=== PATIENT | female | born 1995 | race African-American/Black ===

== ENCOUNTER → 2018-07-11 | Outpatient (CLI) | payer BC | END | disposition home or self-care (01) | LOC: MRI 16:56 | PROVIDERS: ATTEND Internal Medicine Geriatric Medicine | DX: M25.562 Pain in left knee (principal) | CPT/HCPCS: 73721 ==

== ENCOUNTER 2019-07-13 15:25 | Emergency (ER) | payer BC, OTHER ==
[~2019-07-13] VITALS: Ht 160 cm; Wt 114.0 kg
[2019-07-13] MEDS ORDERED: FAMOTIDINE 20MG TABLET PO ONE (18:30)
[2019-07-13] MEDS ORDERED: DIAZEPAM 5 MG TABLET PO ONE (18:30)
[2019-07-13] MEDS ORDERED: IBUPROFEN 600MG TABLET PO ONE (18:30)
[2019-07-13 19:26] VITALS: BP 138/78
== END 2019-07-13 19:27 | disposition home or self-care (01) ==
LOC: ER 15:25
DX: M54.6 Pain in thoracic spine (principal); M54.5 Low back pain; X50.0XXA Overexertion from strenuous movement or load, initial encounter; Y93.89 Activity, other specified; Y92.511 Restaurant or cafe as the place of occurrence of the external cause; Y99.8 Other external cause status
CPT/HCPCS: 99284

== ENCOUNTER 2019-12-10 06:42 | Emergency (ER) | payer SELFPAY ==
[~2019-12-10] VITALS: Ht 160 cm; Wt 109.5 kg
[2019-12-10] MEDS ORDERED: KETOROLAC 30MG/ML VIAL IV STA (07:21)
[2019-12-10] MEDS ORDERED: SODIUM CHLORIDE 0.9% 1,000 ML IV ONE (07:21)
[2019-12-10 07:40] LABS: BASOPHILS % 0.3 % (0.0-2.0); EOSINOPHILS % 3.7 % (0.0-5.0); HEMATOCRIT. 37.4 % (36.0-48.0); HEMOGLOBIN. 12.5 g/dL (12.0-16.0); LYMPHOCYTES % 28.4 % (20.0-50.0); MEAN CORPUSCULAR HEMOGLOBIN 28.3 pg (28.0-32.0); MEAN CORPUSCULAR VOLUME 84.9 fL (81.0-99.0); MEAN PLATELET VOLUME 7.9 fl (7.4-10.4); MONOCYTES % 7.5 % (2.0-8.0); NEUTROPHILS % 60.1 % (40.0-76.0); PLATELET 269 x1000/uL (130-400)
[2019-12-10 07:46] LABS: CHLORIDE 104 mEq/L (98-107)
[2019-12-10 08:04] LABS: CLARITY URINE CLEAR (CLEAR); COLOR URINE YELLOW (YELLOW); KETONES URINE NEGATIVE (NEGATIVE); LEUKOCYTE ESTERASE URINE 1+ (NEGATIVE); NITRITE URINE NEGATIVE (NEGATIVE); OCCULT BLOOD URINE NEGATIVE (NEGATIVE); PH URINE 7.5 (4.5-8.0); PROTEIN URINE NEGATIVE (NEGATIVE); SPECIFIC GRAVITY URINE 1.013 (1.005-1.030); UROBILINOGEN URINE 0.2 E.U./dL (0.2-1.0)
[2019-12-10] MEDS ORDERED: CEPHALEXIN 250MG CAPSULE PO ONE (08:45)
[2019-12-10] MEDS ORDERED: CEPHALEXIN 250 MG/5 ML 100ML PO SCH (10:30)
[2019-12-10 11:19] VITALS: BP 134/70
== END 2019-12-10 12:03 | disposition home or self-care (01) ==
LOC: ER 06:42
DX: R10.31 Right lower quadrant pain (principal); N39.0 Urinary tract infection, site not specified; Z98.890 Other specified postprocedural states
CPT/HCPCS: 36415; 74176; 76830; 76856; 80053; 81003; 81025; 83690; 85025; 96374; 99284; J1885; J7030